=== PATIENT | female | born 1935 | race Caucasian/White ===

== ENCOUNTER 2016-12-06 10:23 | Day surgery (SDC) | payer MEDICARE ==
[2016-12-05 09:35] VITALS: BMI 24.0
[2016-12-06] MEDS ORDERED: Midazolam HCl 2 mg/2 ml Vial ONE (12:01)
[2016-12-06] MEDS ORDERED: Acetaminophen 500 MG TAB ONE (14:44)
--- NOTE | 2016-12-06 15:31 | RAD ---
FOUR VIEWS LUMBAR SPINE: DATE: 12/06/16. HISTORY: Preoperative evaluation. FINDINGS: There are 5 [id number] lumbar-type vertebral bodies. There is right convex rotoscoliosis lumba r spine. Multilevel degenerative changes are seen in the lower thoracic as well as involving the norberto mbar spine. There is narrowing of the intervertebral disk spaces at all levels. There is a suggest ion of mild height loss centrally involving the L1 vertebral body stable from the study on 06/11/16. The remaining vertebral body heights appear to be within normal limits. Scattered osteophytes are seen anteriorly. There is stable trace anterolisthesis of L5 on S1. There is grade I anterolisthes is of L4 on L5 measuring approximately 8-9 mm. No significant abnormal translational motion is pres ent. Facet hypertrophic change are seen in the lower lumbar spine. Vascular calcifications are aga in seen in the abdominal aorta with multiple calcifications again overlying the lower pelvis. IMPRESSION: 1. Right convex scoliosis lumbar spine with multilevel degenerative changes. 2. Slight height loss centrally involving the superior end plate of the L1 vertebral body, stable f rom the study on 06/11/16. 3. Grade I anterolisthesis of L4 on L5 with slight grade I anterolisthesis of L5 on S1 stable from prior exam. POS: BURKE
--- NOTE | 2016-12-06 16:45 | MRI ---
LUMBAR SPINE MRI NONCONTRAST: Date: 12/06/16 COMPARISON: Lumbar spine radiographs dated 12/06/16. CLINICAL HISTORY: Lumbar radiculopathy. FINDINGS: No evidence of acute compression deformity. There is trace spondylolisthesis at L4-5. Scattered area s of intrinsic T1 signal hyperintensity of the regional marrow indicate intraosseous hemangioma form ation and areas of focal fatty marrow. There is bilateral prominence of each renal pelvis, more nota ble on the left, with multifocal parapelvic cyst formation. Partially imaged T2 hyperintensity of th e imaged portion of the spleen suggested, although not reliably assessed. Multilevel moderate bilateral facet osteoarthritis with associated hypertrophy present. L5-S1: Trace spondylolisthesis with prominent degenerative end plate irregularity and signal alteration pre sent, and loss of disc space height. There is moderate narrowing of the central canal, and moderate to severe right and moderate left neural foraminal stenosis. L4-5: Moderate central canal stenosis as a result of broad based disc osteophyte complex is present with m oderate to severe bilateral neural foraminal stenosis. L3-4: Severe central canal stenosis and moderate bilateral neural foraminal stenosis present on the basis of broad based disc osteophyte and bilateral facet osteoarthrosis. L2-3: Mild narrowing of the central canal due to broad based disc osteophyte complex with severe left and moderate right neural foraminal stenosis. L1-2: Mild narrowing of the central canal and moderate biforaminal stenosis. Conus medullaris demonstrates normal morphology terminating at the inferior L1 level. IMPRESSION: 1. Multilevel prominent degenerative change throughout the lumbar spine as outlined above, which re sults in severe central canal stenosis at the L3-4 level. 2. Incidental note of a potential cyst of the spleen, although not reliably evaluated or imaged on this exam. Recommend follow-up with a pre and postcontrast CT abdomen. POS: BURKE
--- NOTE | 2016-12-09 16:02 | EKG ---
Test Reason : PREOP Blood Pressure : / mmHG Vent. Rate : 077 BPM Atrial Rate : 077 BPM P-R Int : 174 ms QRS Dur : 078 ms QT Int : 374 ms P-R-T Axes : 064 046 056 degrees QTc Int : 423 ms Normal sinus rhythm Normal ECG No previous ECGs available Confirmed by ANNIA CARCAMO ([id number]) on 12/09/2016 4:02:01 PM Referred By: ABEL Confirmed By:ANNIA CARCAMO
--- OUTSIDE RECORDS SUMMARY | 2016-12-11 04:19 | XMS | Clinical Summary ---
:1935 Author Organization [facility] Address [address] [place] [address] Phone Care Team Providers Name Role Phone Leanne Maria Primary Care Provider tel Allergies Active Allergy Reactions Severity Noted Date Comments Penicillins 05/02/2014 Current Medications Prescription Sig. Disp. Refills Start Date End Date Status ergocalciferol (VITAMIN D2) Take 50,000 Units Active 50,000 unit capsule by mouth. gabapentin (NEURONTIN) 300 Take 300 mg by Active mg capsule mouth 3 (three) times a day. losartan (COZAAR) 50 MG Take 50 mg by Active tablet mouth daily. BABY ASPIRIN ORAL Take by mouth. Active labetalol (NORMODYNE) 100 Take 100 mg by Active MG tablet mouth 2 (two) times a day. amLODIPine (NORVASC) 5 mg Take 5 mg by Active tablet mouth daily. Active Problems No known active problems Family History Medical History Relation Name Comments Cancer Father Heart disease Mother Hypertension Mother Relation Name Status Comments Father Mother Social History Tobacco Use Types Packs/Day Years Used Date Never Smoker Alcohol Use Drinks/Week oz/Week Comments No Sex Assigned at Date Recorded Not on file Last Filed Vital Signs Vital Sign Reading Time Taken Blood Pressure - - Pulse - - Temperature - - Respiratory Rate - - Oxygen Saturation - - Inhaled Oxygen Concentration - - Weight 67.6 kg (149 lb) 08/27/2016 10:25 AM CDT Height 162.6 cm (5' 4") 08/27/2016 10:25 AM CDT Body Mass Index 25.58 08/27/2016 10:25 AM CDT Plan of Treatment Health Maintenance Due Date Last Done Comments ZOSTER VACCINE 1996 PNEUMOCOCCAL POLYSACCHARIDE VACCINE AGE 65 AND OVER 2001 PNEUMOCOCCAL-13 2001 INFLUENZA VACCINE 09/17/2016 Results Not on filefrom Last 3 Months Insurance Payer Benefit Plan / Group Subscriber ID Type Phone Address MEDICARE MEDICARE PART A AND B [id number] Medicare [place], [place] EQUITABLE LIFE EQUITABLE LIFE [id number] Commercial [phone] [place] [address]
== END 2016-12-06 14:45 | disposition home or self-care (01) ==
LOC: SDC/OP 10:23
PROVIDERS: ATTEND Surgery
DX: M54.16 Radiculopathy, lumbar region (principal); I10 Essential (primary) hypertension; M19.90 Unspecified osteoarthritis, unspecified site; F41.9 Anxiety disorder, unspecified; Z96.1 Presence of intraocular lens; Z98.890 Other specified postprocedural states; Z90.710 Acquired absence of both cervix and uterus
CPT/HCPCS: 72100; 72148; 93005; 93010; J2250

== ENCOUNTER 2016-12-16 11:23 | Outpatient (CLI) | payer MEDICARE ==
[2016-12-16 12:47] LABS: Hematocrit 49.2 % (36.0-47.0); Mean Platelet Volume 8.5 fL (7.4-10.4); Red Blood Cell (RBC) Count 4.99 mill/uL (4.20-5.40); White Blood Cell (WBC) Count 8.8 thou/uL (4.8-10.8)
--- OUTSIDE RECORDS SUMMARY | 2016-12-16 12:53 | XMS | Clinical Summary ---
:1935 Author Organization [facility] Address [address] [place] [address] Phone Care Team Providers Name Role Phone [...] Address MEDICARE MEDICARE PART A AND B [id number] Medicare [place], [place] EQUITABLE LIFE E[employer] LIFE [id number] Commercial [phone] [place] [address]
[2016-12-16 12:57] LABS: PTT 24.9 SEC (22.9-36.1)
[2016-12-16 12:58] LABS: Prothrombin Time 13.6 SEC (12.0-14.7)
[2016-12-16 13:12] LABS: Anion Gap 14 mmol/L (10-20); BUN (Urea Nitrogen) 11 mg/dL (9.8-20.1); Calc. Creatinine Clearance 0 mL/min (70-130); Calcium 10.3 mg/dL (7.8-10.44); Carbon Dioxide 25 mmol/L (23-31); Chloride 102 mmol/L (98-107); Estimated GFR-MDRD 66
== END 2016-12-16 11:24 | disposition home or self-care (01) ==
LOC: LABBT 11:23
PROVIDERS: ATTEND Surgery
DX: Z01.812 Encounter for preprocedural laboratory examination (principal); M48.061 Spinal stenosis, lumbar region without neurogenic claudication; M43.16 Spondylolisthesis, lumbar region; M54.16 Radiculopathy, lumbar region
CPT/HCPCS: 80048; 85027; 85610; 85730

== ENCOUNTER 2016-12-19 05:46 | Day surgery (SDC) | payer MEDICARE ==
[2016-12-16 11:50] VITALS: BMI 24.3
[2016-12-19] MEDS ORDERED: Sodium Chloride 0.9% 10 ML ONE (06:27)
[2016-12-19] MEDS ORDERED: Bacitracin Zinc Ointment 30 gm TUBE ONE (06:27)
[2016-12-19] MEDS ORDERED: Thrombin 5000 UNITS/5 ML VIAL ONE (06:27)
[2016-12-19] MEDS ORDERED: Clindamycin/D5W 900 mg/50 ml Premix Bag ONE (06:30)
[2016-12-19] MEDS ORDERED: Levofloxacin 500 mg/D5W 100 ml Premix Bag ONE (06:30)
[2016-12-19] MEDS ORDERED: Phenylephrine 10 MG/NS 250 ML 0 ML ONE (07:07)
[2016-12-19] MEDS ORDERED: Albumin 5% 0 ML ONE (07:07)
[2016-12-19] MEDS ORDERED: Fentanyl 250 MCG/5 ML VIAL ONE (07:19)
[2016-12-19] MEDS ORDERED: Lidocaine 2% MPF 10 ML AMP (For Epidural Use) ONE (07:36)
[2016-12-19] MEDS ORDERED: Ondansetron HCl/PF 4 MG/2 ML Vial ONE (07:36)
[2016-12-19] MEDS ORDERED: Propofol 200 MG/20 ML VIAL ONE (07:36)
[2016-12-19] MEDS ORDERED: PHENYLEPHRINE-NS 100 MCG/ML 10 ML SYRINGE ONE ×2 (07:36→09:47)
[2016-12-19] MEDS ORDERED: Glycopyrrolate 0.2 MG/ML 5 ML SYRINGE ONE (07:36)
[2016-12-19] MEDS ORDERED: ePHEDrine/0.9% NaCl/PF SYRINGE 50 mg/10 ml ONE (07:36)
[2016-12-19] MEDS ORDERED: Vecuronium 10 MG VIAL ONE (07:36)
[2016-12-19] MEDS ORDERED: Promethazine HCl 25 MG/ML VIAL IM PRN ×2 (10:11→10:40)
[2016-12-19] MEDS ORDERED: Meperidine HCl/PF 25 MG/ML VIAL SLOW IVP PRN (10:11)
[2016-12-19] MEDS ORDERED: Promethazine HCl 25 MG/ML VIAL SLOW IVP PRN (10:11)
[2016-12-19] MEDS ORDERED: Ondansetron HCl/PF 4 MG/2 ML Vial IVP PRN (10:11)
[2016-12-19] MEDS ORDERED: HYDROmorphone 2 MG/ML VIAL SLOW IVP PRN (10:11)
[2016-12-19] MEDS ORDERED: Milk Of Magnesia 30 ML UDCUP PO PRN (10:40)
[2016-12-19] MEDS ORDERED: tiZANidine HCl 4 MG TAB PO PRN (10:40)
[2016-12-19] MEDS ORDERED: Bisacodyl 10 MG SUPP PR PRN (10:40)
[2016-12-19] MEDS ORDERED: traMADol HCl 50 MG TAB PO PRN (10:40)
[2016-12-19] MEDS ORDERED: Fleet Enema 133 ML BOT PR PRN (10:40)
[2016-12-19] MEDS ORDERED: HYDROcodone/Acetaminophen 7.5/325 mg Tablet PO PRN (10:40)
[2016-12-19] MEDS ORDERED: Acetaminophen 325 MG TAB PO PRN (10:40)
[2016-12-19] MEDS ORDERED: Acetaminophen/Codeine 30-300mg Tablet PO PRN (10:40)
[2016-12-19] MEDS ORDERED: Mag-Al 1200 mg/1200 mg/30 ML UDCUP PO PRN (10:40)
[2016-12-19] MEDS ORDERED: Oxymetazoline HCl 0.05% ( 15 ML ) NASAL PRN (10:48)
--- NOTE | 2016-12-19 11:06 | OP ---
OR: 12. WOUND TYPE: Type 1 wound. SURGEON: Geoffrey Davis M.D. END MAKER: Gilson Diaz PA-C. PREPROCEDURE DIAGNOSES: Multilevel lumbar spondylolisthesis with lumbar stenosis with low back and leg pain. POSTPROCEDURE DIAGNOSES: Multilevel lumbar spondylolisthesis with lumbar stenosis with low back and leg pain. PROCEDURES: 1. L3-L4, L4-L5, and L5-S1 laminectomies, partial facetectomies, foraminotomies L3-L4 and L5-S1 ner ve roots bilaterally. 2. In situ fusion posterolaterally with local bone autograft obtained from same incision and allogr aft at L4-L5 and L5-S1 segments due to history of spondylolisthesis. DESCRIPTION OF PROCEDURE: After informed consent was obtained from the patient, the patient was bro ught to OR 12. Proper patient pause and identification was carried out. She was placed under excel lent general endotracheal anesthesia and positioned prone on the operating room table. All appropri ate points were padded. We identified the L3, L4, L5, and S1 dorsal spines, lamina, and a linear ma rk was made over this region. This area was sterilely cleansed, prepared, and draped, and proper pa tient pause and identification was carried out. The wound was then opened with a combination of sha rp, monopolar, and blunt dissection. The L3, L4, L5, and S1 dorsal spines and lamina were exposed. Localization film confirmed our area of interest. We then performed L3-L4, L4-L5, L5-S1 laminectom ies, partial facetectomies and foraminotomies over the L3, L4, L5, and S1 nerve roots. We were sati sfied with our decompression at that point and we turned our attention to the in situ fusion over th e L4-L5 and L5-S1 posterior and posterolateral regions. Decortication of the posterior and posterol ateral regions of L4, L5, and S1 occurred and local bone autograft obtained from same incision and a llograft was laid over this area to promote bone fusion. Copious irrigation occurred throughout and hemostasis was maximized. The wound was then closed in anatomic layers following the sprinkling of vancomycin powder. There was no spinal fluid leak. The patient then emerged from anesthesia.
[2016-12-19] MEDS ORDERED: Fentanyl 100 MCG/2 ML VIAL ONE (11:44)
[2016-12-19] MEDS: Sodium Chloride 0.9% 1,000 ML IV SCH ×2 (13:14→16:04)
[2016-12-19] MEDS ORDERED: FLU VACC TS2017-18 (>65YR) 0.5 ML SYRINGE IM ONE (13:30)
[2016-12-19] MEDS ORDERED: Clindamycin/D5W 900 MG in Premix Bag 1 BAG IVPB SCH (14:00)
[2016-12-19] MEDS: Clindamycin/D5W 900 MG in Premix Bag 1 BAG IVPB SCH (16:02)
[2016-12-19] MEDS ORDERED: Lorazepam 1 MG TAB PO SCH (21:00)
[2016-12-19] MEDS ORDERED: Labetalol 100 MG TAB PO SCH (21:00)
[2016-12-19] MEDS ORDERED: Amlodipine 5 MG TAB PO SCH (21:00)
[2016-12-20] MEDS: Clindamycin/D5W 900 MG in Premix Bag 1 BAG IVPB SCH (00:29)
[2016-12-20 04:22] VITALS: BP 125/63; TEMP 98.3
[2016-12-20] MEDS: Sodium Chloride 0.9% 1,000 ML IV SCH (05:59)
[2016-12-20] MEDS ORDERED: Losartan 25 MG TAB PO SCH (09:00)
--- NOTE | 2016-12-20 10:29 | PRG ---
DATE OF SERVICE: 12/20/2016 Ms. King is postoperative day 1 from a lumbar decompression in situ fusion. She is doing very wel l with improvement in her low back and leg pain and is mobilizing. She would like to go home. She did have some concerns about nursing care and we have addressed this with our nursing team. Overall, I am very pleased with how well Ms. King is doing. We will arrange appropriate followup. Neurologically, she is doing.
== END 2016-12-20 08:53 | disposition home or self-care (01) ==
LOC: SDC 05:46 → SURG A 11:33 → SDC 12-20 08:53
PROVIDERS: ATTEND Surgery
PROC: 0SG307J Fusion of Lumbosacral Joint with Autologous Tissue Substitute, Posterior Approach, Anterior Column, Open Approach (ICD-10-PCS; principal; 2016-12-19)
DX: M48.061 Spinal stenosis, lumbar region without neurogenic claudication (principal); M54.16 Radiculopathy, lumbar region; M43.16 Spondylolisthesis, lumbar region; Z88.0 Allergy status to penicillin; Z88.8 Allergy status to other drugs, medicaments and biological substances
CPT/HCPCS: 20930; 20936; 22612; 22614; 63047; 63048; 76001; G0008; Q2036; 90471; 90682; A4216; J0131; J1956; J2001; J2405; J2704; J3010; J3370; J3490; P9045